=== PATIENT | female | born 1990 | race Caucasian/White ===

== ENCOUNTER 2017-01-18 09:28 | Outpatient (CLI) | payer OTHER ==
[2017-01-18 13:07] LABS: HCT - HEMATOCRIT 36.9 % (37.0-47.0); HGB - HEMOGLOBIN 12.6 g/dL (12.0-16.0); MEAN CORPUSCULAR HEMOGLOBIN 31.6 pg (27.0-31.0); MEAN CORPUSCULAR HGB CONC 34.2 g/dL (32.0-36.0); MEAN CORPUSCULAR VOLUME 92.5 fL (81.0-99.0); MEAN PLATELET VOLUME 8.3 fL (7.9-10.8); RED BLOOD COUNT 3.99 10^6/uL (4.20-5.40); RED CELL DISTRIBUTION WIDTH 12.4 % (12.0-15.0)
== END 2017-01-18 09:29 | disposition home or self-care (01) ==
LOC: LAB.N 09:28
PROVIDERS: ATTEND Obstetrics & Gynecology
DX: Z36 Encounter for antenatal screening of mother (principal)
CPT/HCPCS: 36415; 82950; 86850

== ENCOUNTER 2017-03-07 13:57 | Outpatient (CLI) | payer OTHER | END 2017-03-07 13:58 | disposition home or self-care (01) | LOC: LAB.R 13:57 | PROVIDERS: ATTEND Obstetrics & Gynecology | DX: Z36 Encounter for antenatal screening of mother (principal) | CPT/HCPCS: 87081 ==

== ENCOUNTER 2017-04-05 03:13 | Inpatient (IN) | payer OTHER ==
[2017-04-05] MEDS ORDERED: SODIUM CHLORIDE FLUSH 0.9% 10 ML SYRINGE IVP PRN (04:17)
[2017-04-05] MEDS ORDERED: OXYTOCIN/SODIUM CHLORIDE 250 ML IV ONE ×2 (04:17→19:11)
[2017-04-05] MEDS ORDERED: fentaNYL 100 MCG/2 ML VIAL IVP PRN (04:17)
[2017-04-05] MEDS ORDERED: ONDANSETRON 4 MG/2 ML VIAL IVP PRN (04:17)
[2017-04-05] MEDS ORDERED: miSOPROStol 200 MCG TABLET ONE (04:23)
[2017-04-05] MEDS ORDERED: MINERAL OIL LIGHT 10 ML MC ONE (04:23)
[2017-04-05] MEDS ORDERED: LIDOCAINE 1% 50 ML MDV ONE (04:23)
--- NOTE | 2017-04-05 04:31 | HISTORY & PHYSICAL EXAMINATION ---
Admit History - Instructions [place]ash: -Left hand click circles element as positive or present. -Right hand click slashes element as negative or not present. - Visit Reason Visit Reason: Membranes rupture - : 1 Parity: 0 Premature: 0 Ectopic: 0 : 0 Care: positive: [facility] (transfer of care @ 21 weeks' EGA), [facility] Risk/History: positive: None Complications This : positive: Other (excessive weight gain) Smoking Status: Never smoker - Mother's Labs Mother's Blood Type: positive: B Mother's RH: positive: Positive GBS: positive: Group B Step Negative Rubella Status: positive: Immune Meds/Allgy - Home Medications Home Medications: Ambulatory Orders Medication Instructions Recorded Confirmed Pnv95/Ferrous Fumarate/FA 1 each ORAL DAILY 04/05/17 04/05/17 [ Tablet] - Allergies Allergies/Adverse Reactions: Allergies Allergy/AdvReac Type Severity Reaction Status Date / Time No Known Drug Allergies Allergy Verified 04/05/17 04:16 Physical - Abdominal Exam Vital Signs: Temp Pulse Resp BP Pulse Ox 36.1 C L 93 18 109/95 H 99 04/05/17 03:30 04/05/17 03:34 04/05/17 03:34 04/05/17 03:34 04/05/17 03:30 Contraction Frequency (min/apart): 3-4 Contraction Intensity: positive: Mild Uterine Resting Tone: positive: Soft - Monitoring Heart Rate Baseline: 130 Strip Review: positive: Category I - Presentation Presentation: positive: Vertex - Vaginal Exam Membranes: positive: Membranes ruptured Dilation (in cm): 3 Effacement (%): 60 Station: positive: -1 (per RN) Cervical Position: positive: Midposition - Speculum Exam Speculum Exam Performed: positive: Yes (by RN) Findings: positive: Gross leak, Fern, Nitrazine, Other (significant pooling of CAF) - Other Notes Labor Progress Note/Additional Text: Angelia is a @ 39w6d by first trimester US who presents w/ complaint of SROM for CAF @ 0300. On admission, she is grossly ruptured for CAF. She is having mild contraction activity, denies LOF, and reports good FM. Her has been complicated solely by excessive weight gain (60+ pounds). She screened negative for GBS @ 36 weeks' gestation. She is likely interested in epidural anesthesia. She is accompanied by her , Richmond, and she is expecting a son, Bakari. Her physical exam is unremarkable: VSS, as noted. EFM: BL 130bpm, +accels, no decels, moderate variability TOCO: UCs q3-4 minutes, x60-70 seconds, palpably mild Eric's lie longitudinal, presentation cephalic, EFW 7.5-8# Gross rupture for CAF SVE per RN 2-3/60/-1, mid position, soft, Bishops': 9 AAOx3, NAD WA gravid female in good spirits, pleasant, normal mood & affect HEENT: grossly normocephalic EOMI Lungs: BL CTA t/o Heart RRR nls2s2, no murmur Abd: gravid, NT, palpably mild contractions, palpable movement, fetus TAMMY position Extremities: FROM t/o, +1 b/l pedal edema Skin: clean, dry, intact w/o lesion Neuro: no gross deficit A: 26 y/o @ 39w6d by first trimester US SROM for CAF x1.5 hours, afebrile GBS negative Not in active labor Adequate pain control w/o analgesia/anesthesia @ this time P: 1. Admit to FBP 2. Reviewed clinical scenario & options for management 3. Pt elects Pitocin augmentation, full PARQ 4. CBC/BB hold/AST/UA & P:C secondary to mildly elevated diastolic BP 5. Continuous electronic monitoring 6. Begin Pitocin infusion & titrate per protocol to adequate contraction pattern by tocometry 7. Reassess cervical status x4 hours, earlier PRN 8. Reviewed plan of care w/ pt, partner & RN @ bedside; back-up , Dr. Ford notified of pt status & POC; all in agreement, without concerns 9. Analgesia/anesthesia PRN per pt request
[2017-04-05] MEDS: LACTATED RINGERS 1,000 ML IV SCH ×3 (04:53→15:38)
[2017-04-05 04:57] LABS: BASOPHILS # (AUTO) 0.1 10^3/uL (0.0-0.1); BASOPHILS % (AUTO) 0.6 %; EOSINOPHILS # (AUTO) 0.1 10^3/uL (0.0-0.7); HCT - HEMATOCRIT 40.4 % (37.0-47.0); HGB - HEMOGLOBIN 14.2 g/dL (12.0-16.0); LYMPHOCYTES % (AUTO) 15.4 %; MEAN CORPUSCULAR HEMOGLOBIN 31.5 pg (27.0-31.0); MEAN CORPUSCULAR HGB CONC 35.1 g/dL (32.0-36.0); MEAN CORPUSCULAR VOLUME 89.8 fL (81.0-99.0); MEAN PLATELET VOLUME 8.6 fL (7.9-10.8); MONOCYTES # (AUTO) 0.7 10^3/uL (0.0-1.0); MONOCYTES % (AUTO) 5.5 %; NEUTROPHILS # (AUTO) 10.3 10^3/uL (1.5-6.6); NEUTROPHILS % (AUTO) 77.5 %; NUCLEATED RED BLOOD CELLS AUTO 0.1 /100WBC; RED CELL DISTRIBUTION WIDTH 12.6 % (12.0-15.0); UNCORRECTED WHITE BLOOD COUNT 13.2 x10^3/uL; WHITE BLOOD COUNT 13.2 x10^3/uL (4.8-10.8)
[2017-04-05] MEDS ORDERED: TERBUTALINE 1 MG/ML VIAL SUBQ SCH (05:00)
[2017-04-05] MEDS ORDERED: ACETAMINOPHEN 325 MG TABLET PO SCH (05:00)
[2017-04-05] MEDS ORDERED: OXYTOCIN/SODIUM CHLORIDE 250 ML IV SCH (05:00)
[2017-04-05 05:58] LABS: CREATININE 0.6 mg/dL (0.4-1.0)
[2017-04-05 06:00] LABS: BILIRUBIN,URINE NEGATIVE (NEGATIVE)
[2017-04-05] MEDS ORDERED: SODIUM CHLORIDE FLUSH 0.9% 10 ML SYRINGE IVP SCH (06:00)
[2017-04-05 06:08] LABS: UA w/ MICROSCOPIC CHARGE YES
[2017-04-05 06:09] LABS: UR CULTURE IF IND NOT INDICATED; WBC,URINE 0-3 /HPF (0-5)
--- NOTE | 2017-04-05 08:30 | PROVIDER PROGRESS NOTE ---
Labor Progress Note - Uterine Monitoring Uterine Monitoring Mode: positive: External toco Contraction Frequency (min/apart): 2-4 Contraction Intensity: positive: Mild Uterine Resting Tone: positive: Soft - Monitoring Monitor Mode: positive: External ultrasound Heart Rate Baseline: 135 Heart Rate Variability: positive: Moderate (6-25 bmp) Accelerations: positive: Present, 15x15 Decelerations: positive: None Strip Review: positive: Category I - Labor Progress Note Labor Progress Note/Additional Text: S: Angelia is doing well. She has eaten breakfast & is cheerfully conversant. Her , Richmond, is at the bedside & is supportive. She feels her contractions but does not yet describe them as painful or particularly uncomfortable. She does not desire analgesia/anesthesia. She has noticed some pink-tinged mucoid vaginal d/c when she has used the restroom. O: AAOx3, NAD WA gravid female. VS: T 97.9, HR 76, R 18, BP 105/55 EFM: BL 135bpm, + accels, no decels, moderate variability TOCO: UCs q2-4 min on 5mU/min of Pitocin SVE deferred secondary to no clinical indication Ongoing leakage of copious amounts of CAF A: 26 y/o @ 39w6d s/p SROM for CAF @ 0300, for a total ruptured duration of 5.5 hours, afebrile GBS negative Pitocin IOL w/ Pitocin infusion titrated over the course of 3 hours Not in labor Adequate pain control w/o analgesia/anesthesia FHTs cat I P: 1. Reviewed clinical scenario & process of induction, physiology of labor 2. Encouraged maternal position changes & reviewed optimal positioning to facilitate rotation & descent 3. Continue to titrate Pitocin per protocol to establish adequate contraction pattern by tocometry 4. SVE w/ clinically significant change 5. Analgesia/anesthesia PRN per pt request 6. Reviewed plan of care w/ pt & partner; Dr. Cook, back-up MD, aware of clinical scenario; all in agreement, without concerns.
--- NOTE | 2017-04-05 13:32 | PROVIDER PROGRESS NOTE ---
Labor Progress Note - Uterine Monitoring Contraction Frequency (min/apart): 2-3 Contraction Intensity: positive: Moderate to strong Uterine Resting Tone: positive: Soft - Monitoring Monitor Mode: positive: External ultrasound Heart Rate Baseline: 135 Heart Rate Variability: positive: Moderate (6-25 bmp) Accelerations: positive: Present, 15x15 Decelerations: positive: Variable (occasional to marnie in 110s w/ spontaneous return to baseline <60 seconds) Strip Review: positive: Category II - Vaginal Exam Dilation (in cm): 5 Effacement (%): 100 Station: -1 Cervical Position: Midposition - Labor Progress Note Labor Progress Note/Additional Text: S: Angelia is very uncomfortable w/ her uterine contractions. The tub was not particularly helpful. She is breathing w/ the contractions & crying. Her is present & supportive. She does not desire analgesia/anesthesia @ this time. She requests SVE O: AAOx3, uncomfortable gravid female VS: T97.9 HR 71 RR18 BP 124/80 EFM: BL 135bpm, + accels, mod saúl, occ saúl decel, non-repetitive, to marnie in 110s w/ spontaneous return to baseline <60 seconds TOCO UCs q2-3 minutes palpably strong x60-80 seconds on 8mU/min of Pitocin SVE: 5/90/-1, midposition, soft; ongoing leakage of CAF A: 26 y/o @ 39w6d s/p SROM @ 0300, for a total ruptured duration of 10.5 hours, afebrile CAF continuing to leak GBS negative FHTs cat II, reassuring & reactive Progressive cervical change; actively laboring Uncomfortable but coping P: 1. Reviewed pain management options 2. Reviewed optimal maternal positioning to facilitate rotation & descent 3. Reviewed physiology of labor, anticipatory guidance 4. Reassess cervical status w/ change in clinical status 5. Continue to titrate Pitocin per protocol to maintain adequate contraction pattern by tocometry 6. Anticipate 7. Reviewed plan of care w/ pt, partner, RN & Dr. Liliana MD back-up; all in agreement, without concerns.
[2017-04-05] MEDS ORDERED: fent/BUPIV 2 MCG/0.125% 250 ML EP ONE (14:46)
[2017-04-05] MEDS ORDERED: WITCH HAZEL/GLYCERIN 1 EACH MED..PAD TOP PRN (19:11)
[2017-04-05] MEDS ORDERED: HYDROCORTISONE/PRAMOXINE 10 GM PR PRN (19:11)
--- NOTE | 2017-04-05 19:20 | DELIVERY NOTE ---
Delivery Note - Labor Labor: positive: Induced by oxytocin - Infant Delivery Method Delivery Method: positive: Spontaneous vaginal delivery - Presentation Presentation: positive: Vertex, Compound (right hand), SHYAM - right occiput anterior - Nuchal Cord Nuchal Cord: positive: Present (x2, tight, delivered) - Anesthetic Anesthetic Type: - Amniotic Fluid Description Amniotic Fluid Description: positive: Clear - Episiotomy Type Episiotomy Type: positive: None - Laceration Laceration: positive: Labial (left labia minora avulsion), Vaginal (left sidewall) - Suture Suture Type: positive: Vicryl Suture Size: positive: 3-0, 4-0 - Delivery Outcome Delivery Outcome: positive: Livebirth - [place]: positive: Placed in direct skin contact with mother, Stimulated, Warmed , Roxana used sex: positive: Male - Cord Cord: positive: 3 vessels - Placenta Placenta: positive: Intact, Spontaneous - Estimated Blood Loss Estimated Blood Loss (in cc): 300 - Post Delivery Events Post Delivery Events: positive: No post delivery events - Delivery Comments (Free Text/Narrative) Delivery Comments (Free Text/Narrative): Angelia Huang is a 26 y/o [id number] who presented w/ complaint of gross SROM for CAF @ 0300 on 04/05/2017. She had an unremarkable course. She was admitted & induced w/ Pitocin infusion per her request. FHTs monitored electronically t/o, consistently reassuring cat I-II. She progressed over a period of 8 hours to 5cm dilatation & received an epidural for labor discomfort. Pitocin infusion was titrated per protocol & she progressed readily to complete dilatation @ 1815, for a total first stage duration of 6.25 hours. She pushed with direction to viable male over intact perineum in SHYAM position w/ compound R hand @ 1834, for a total 2nd stage duration of 19 minutes. Tight nuchal x2, somersaulted through following delivery of shoulders. Infant vigorous w/ spontaneous, lusty cry. Placed to maternal abdomen for drying/stim. Delayed cord clamping until cessation of pulsation, then cord clamped x2 by CNM, cut by mother. 3VC noted, cord blood obtained. Active management of the 3rd stage w/ Pitocin in IV fluids. Placenta delivered spontaneously, Joleen, @ 1839, for a total 3rd stage duration of 5 minutes. FF @ U-1. Vagina & perineum inspected & L vaginal sidewall/L labial avulsion noted. Repaired under epidural anesthesia w/ 3-0 & 4-0 vicryl. Hemostatic. Mother & baby stable, initiated w/in 30 minutes of delivery. 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
[2017-04-05] MEDS ORDERED: LACTATED RINGERS 1,000 ML IV SCH (20:00)
[2017-04-05] MEDS: IBUPROFEN 600 MG TABLET PO SCH (20:09)
[2017-04-05] MEDS: DOCUSATE SODIUM 100 MG CAPSULE PO SCH (20:09)
[2017-04-06] MEDS: IBUPROFEN 600 MG TABLET PO SCH ×3 (02:15→19:15)
[2017-04-06] MEDS: DOCUSATE SODIUM 100 MG CAPSULE PO SCH ×2 (09:13→22:22)
--- NOTE | 2017-04-06 09:30 | Discharge Plan ---
Discharge Plan Disposition: 01 Home, Self Care Condition: Good Prescriptions: Ibuprofen [Motrin] 600 mg PO Q6H #30 tablet Diet: Regular Activity Restrictions: pelvic rest Shower Restrictions: No Driving Restrictions: No Weight Bearing: Full Weight Instruction Topics: Vaginal After No Smoking: If you smoke, Please STOP! Call for help. Follow-up with: Usha Acevedo DO [Provider Admit Priv/Credential] -
--- NOTE | 2017-04-06 09:35 | DISCHARGE SUMMARY ---
Discharge Summary Admit Date: 04/05/17 Discharge Date: 04/06/17 Discharging Provider: Alfredo Code Status: Attempt Resuscitation Condition at Discharge: Good Discharge Disposition: 01 Home, Self Care - DIAGNOSES Admission Diagnoses: Leakage of amniotic fluid Term gestation Excessive weight gain in Discharge Diagnoses with Status of Each Condition: Vaginal & labial lacerations with repair - HPI History of Present Illness: Angelia is a 26 y/o [id number] who was admitted w/ SROM for CAF, not in labor. She elected Pitocin induction of labor & entered active labor within 8 hours of SROM. She progressed steadily & received epidural for anesthesia. She continued to progress w/ Pitocin infusion & was found to be complete 3.5 hours after receiving her epidural. She pushed w/ excellent expulsive effort to of viable male w/ tight nuchal cord x2 & compound R hand presentation over intact perineum. Apgars 9/9. She sustained L vaginal sidewall & L labial laceration, which were repaired under epidural anesthesia. - HOSPITAL COURSE Hospital Course: Angelia breastfed effectively w/in 30 minutes s/p delivery & had been w/o difficulty throughout her hospital stay. She had an observed 10/10 latch. , her pain was well-controlled w/o opioid analgesia. She was ambulating & voiding w/o difficulty. She had minimal lochia rubra. She was tolerating po & passing flatus. She was anticipating her 's deployment but reported additional excellent social support. She was planning 3 months of leave from work. Her physical exam was WNL, her vital signs were stable, and she had normal uterine involution. She was able to fully articulate pp warning s/sx, including pp depression s/sx, and after care instructions. She planned pp f/u w/ Dr. Usha Acevedo DO, and she planned support PRN w/ myself. She would be seen for evaluation x2 weeks, earlier PRN. She had emergency contact information & was ready to leave the hospital. - ALLERGIES Allergies/Adverse Reactions: Allergies Allergy/AdvReac Type Severity Reaction Status Date / Time No Known Drug Allergies Allergy Verified 04/05/17 04:16 - MEDICATIONS Home Medications: Ambulatory Orders Medication Instructions Recorded Confirmed Pnv95/Ferrous Fumarate/FA 1 each ORAL DAILY 04/05/17 04/05/17 [ Tablet] Ibuprofen [Motrin] 600 mg PO Q6H #30 tablet 04/06/17 - PHYSICAL EXAM AT DISCHARGE General Appearance: positive: No acute distress Eyes Bilateral: positive: Normal inspection, EOMI Respiratory: positive: No respiratory distress, Breath sounds nml Cardiovascular: positive: Regular rate & rhythm, No murmur Abdomen: positive: Non-tender, No distention, Other (Fundus firm @ U-1). negative: Mass Back: positive: Nml inspection Skin: positive: Color nml, No rash, Warm, Dry Extremities: positive: Non-tender, Full ROM. negative: Pedal edema, Calf tenderness, Will's sign/cords Neurologic/Psychiatric: positive: Oriented x3, CN's nml (2-12), Motor nml, Sensation nml, Mood/affect nml Physical Exam Other/Comments: Breast b/l soft, NT; nipples intact & everted. Perineum intact, labial sutures intact, minimal lochia rubra. - LABS Result Diagrams: 04/05/17 04:35 04/05/17 05:26 - FOLLOW UP Follow Up: x2 weeks for support, earlier PRN x6 weeks for pp care w/ Dr. Usha Acevedo DO - TIME SPENT Time Spent in Discharge (Minutes): 30
[2017-04-07] MEDS: IBUPROFEN 600 MG TABLET PO SCH ×3 (01:07→08:22)
[2017-04-07 03:11] VITALS: BP 122/77
[2017-04-07] MEDS: DOCUSATE SODIUM 100 MG CAPSULE PO SCH (08:22)
--- NOTE | 2017-04-07 12:22 | Labor Flowsheet ---
Labor Flowsheet Datetime Report Generated by CPN: 04/07/2017 12:22 Datetime: 04/07/2017 03:09 VITAL SIGNS NBP Sys/Ivy/Mean (mmHg): 122 : 77 : 88 Pulse: 79 COMMUNICATION LaborFlag: Labor Datetime: 04/05/2017 19:45 Temperature (F): 99.7 Temperature (C): 37.6 Temperature (C): 37.6 Datetime: 04/05/2017 19:30 SpO2 (%): 98 Datetime: 04/05/2017 18:25 STAGE 2 Pushing: Coached on Pushing; Urge to Push Pushing Position: Pushing with Contractions Pushing Progress: Descent with Pushing; with Pushing; Pushing Effectively with Contraction s Preparation for Delivery: Setup for Delivery Datetime: 04/05/2017 18:15 VAGINAL EXAM Dilatation (cm): 10.0 Effacement (%): 100 Station: 3 Exam by: P Wong, RN Datetime: 04/05/2017 17:00 Stage of : Labor UTERINE ACTIVITY Monitor Mode: External Frequency (min): 2-3 Quality: Strong Duration (sec): 60-70 Pattern: Normal: <= 5 Contractions in 10 Minutes Resting Tone (Palpate): Relaxed Pitocin Checklist: At Least 1 Acceleration of 15 bpm x 15 Seconds in 30 Minutes or Adequate Variabi lity; No More than 1 Late Deceleration Occurred in Past 30 Minutes; No More than 2 Variable Decelerat ions > 60 Seconds in Duration and decreasing >60 bpm in 30 minutes; No More than 5 Uterine Contractio ns in 10 Minutes for any 20 Minute Interval; Uterus Palpates Soft between Contractions ASSESSMENT A Monitor Mode: External US FHR Baseline Rate : 135 FHR Baseline Changes: No Baseline Change Variability: Moderate 6-25 bpm Accelerations: 15X15 Decelerations: Variable Oxygen Method: Room Air Patient Position/Activity: Semi-Fowlers Comfort Measures: Breathing/Relaxation; Coaching; Family Support Datetime: 04/05/2017 15:10 ANESTHESIA Anesthesia Plans: Epidural Anesthesia Interview: E Epidural Positioning: Side Lying Epidural Procedure Other: Pump Started; Redose Datetime: 04/05/2017 14:55 Epidural Procedure: Loading Dose; Completed Datetime: 04/05/2017 14:00 Hygiene: Underpad Changed; Peripad Changed; Gown Changed Datetime: 04/05/2017 12:58 Respirations: 18 Temperature Route: Oral Category: Category I Datetime: 04/05/2017 12:20 PATIENT CARE IV/Blood Work: New IV Bag Hung I/O Interventions: Ice Chips Given; Clear Liquids Given; Up to BR Datetime: 04/05/2017 09:00 MEDICATIONS Pitocin (milliunits): Increased to @
== END 2017-04-07 11:30 | disposition home or self-care (01) | DRG 775 ==
LOC: FBP 03:13 → WFO 03:13 → FBP 04:17
PROVIDERS: ADMIT Registered Nurse; ATTEND Registered Nurse
PROC: 10E0XZZ Delivery of Products of Conception, External Approach (ICD-10-PCS; principal; 2017-04-05)
PROC: 0UQGXZZ Repair Vagina, External Approach (ICD-10-PCS; 2017-04-05)
PROC: 0HQ9XZZ Repair Perineum Skin, External Approach (ICD-10-PCS; 2017-04-05)
DX: O42.02 Full-term premature rupture of membranes, onset of labor within 24 hours of rupture (principal); O69.1XX0 Labor and delivery complicated by cord around neck, with compression, not applicable or unspecified; O32.6XX0 Maternal care for compound presentation, not applicable or unspecified; O70.1 Second degree perineal laceration during delivery; O70.0 First degree perineal laceration during delivery; Z3A.39 39 weeks gestation of pregnancy; Z37.0 Single live birth
CPT/HCPCS: 36415; 51701; 81001; 81003; 82565; 82570; 84156; 84450; 85025; 87086; 99213

== ENCOUNTER 2019-05-22 19:06 | Outpatient (CLI) | payer OTHER ==
[2019-05-22 20:02] VITALS: BP 117/67
== END 2019-05-22 20:39 | disposition home or self-care (01) ==
LOC: WFO 19:06 → FBP 19:09 → WFO 20:39
PROVIDERS: ATTEND Obstetrics & Gynecology
DX: Z53.9 Procedure and treatment not carried out, unspecified reason (principal)
CPT/HCPCS: 99214

== ENCOUNTER 2021-03-09 08:22 | Emergency (ER) | payer OTHER ==
[2021-03-09 08:34] VITALS: BP 113/79
[2021-03-09] MEDS ORDERED: CHERRY SYRUP 10 ML UDC PO ONE (09:07)
[2021-03-09] MEDS ORDERED: ACETAMINOPHEN 325 MG TABLET PO STA (09:07)
[2021-03-09] MEDS ORDERED: DEXAMETHASONE 10 MG/ML VIAL PO STA (09:07)
--- NOTE | 2021-03-09 09:08 | ED Physician Documentation ---
PD HPI LOWER EXT INJURY - Stated complaint Stated Complaint: HIP PX - Chief complaint Chief Complaint: Ext Problem - History obtained from History obtained from: Patient - History of Present Illness PD HPI LOW EXT INJURY LOCATION: Right, Hip Type of injury: No: Fall, Twist Where injury occurred: Home Timing - onset: How many weeks ago (2-3) Timing - details: Gradual onset, Intermittant (she has had pain in right inguinal/hip area, worse with walking/twisting. Hurts more when has been on feet longer. Feels stiff in mornings. Had clicking and grinding sounds/feeling when first getting up. Mild pain left hip as well. No other joint pains now. Has some lumbar back pains at times.) Worsened by: Moving. No: Palpating Associated symptoms: No: Weakness, Numbness, Swelling Similar symptoms before: No diagnosis (has had similar pains at times in the past but would improve after a day or so.) Recently seen: Clinic (went to [facility] and had xray hip that pt was told was normal. Told to use Ibuprofen for tendonitis. Not improved with that and stretching.) Review of Systems Constitutional: denies: Fever, Chills GI: denies: Abdominal Pain, Nausea, Vomiting Skin: reports: Rash (occasional pebbly rash on face and behind ears. No elbow/knee rashes nor hyperkeratotic patches.). denies: Lesions Musculoskeletal: denies: Neck pain PD PAST MEDICAL HISTORY - Past Medical History Past Medical History: Yes Cardiovascular: None Respiratory: None Neuro: Headaches Endocrine/Autoimmune: None GI: None ECOTHERAPIST: None : None HEENT: None Psych: ADD/ADHD Musculoskeletal: Chronic back pain Derm: None - Past Surgical History Past Surgical History: Yes Ortho: Other /ECOTHERAPIST: section - Present Medications Home Medications: Ambulatory Orders Medication Instructions Recorded Confirmed Pnv No.95/Ferrous Fum/Folic AC 1 each ORAL DAILY 04/05/17 03/09/21 [ Tablet] Cholecalciferol [Vitamin D3] 25 mcg PO DAILY 03/09/21 03/09/21 Ibuprofen [Motrin] 600 mg PO Q6H PRN 03/09/21 03/09/21 Meloxicam [Mobic] 7.5 mg PO BID 10 Days #30 tablet 03/09/21 dexAMETHasone [Decadron] 4 mg PO DAILY #5 tablet 03/09/21 tiZANidine [Zanaflex] 4 mg PO BID PRN #20 tablet 03/09/21 - Allergies Allergies/Adverse Reactions: Allergies Allergy/AdvReac Type Severity Reaction Status Date / Time No Known Drug Allergies Allergy Verified 03/09/21 08:28 - Social History Does the pt smoke?: No Smoking Status: Never smoker Does the pt drink ETOH?: Yes Does the pt have substance abuse?: No - Family History Family history: reports: Other (mom with psoriatic arthritis. ) - Immunizations Immunizations are current?: Yes PD ED PE NORMAL - Vitals Vital signs reviewed: Yes - General General: Alert and oriented X 3, No acute distress, Well developed/nourished - Abdomen Abdomen: Soft, Non tender - Back Back: No CVA TTP, No spinal TTP - Derm Derm: Normal color, Warm and dry, No rash - Extremities Extremities: Other (right hip with some tenderness medially. No pain with flexion/ext but does hurt with external rotation actively. Slight clicking feeling with rotation. Passive ROM hurts with rotation as well. No pain with just impaction. ) - Neuro Neuro: Alert and oriented X 3, No motor deficit, No sensory deficit, Normal speech Results - Vitals Vitals: Vital Signs - 24 hr 03/09/21 08:30 Temperature 36.4 C L Heart Rate 74 Respiratory 16 Rate Blood Pressure 113/79 O2 Saturation 100 Oxygen O2 Source Room air - Labs Labs: Laboratory Tests 03/09/21 03/09/21 03/09/21 09:16 09:16 09:16 WBC 4.7 L RBC 4.78 Hgb 14.8 Hct 44.4 MCV 92.9 MCH 31.0 MCHC 33.3 RDW 11.7 L Plt Count 298 MPV 9.7 Neut # (Auto) 2.5 Lymph # (Auto) 1.6 [place] # (Auto) 0.3 Eos # (Auto) 0.2 Baso # (Auto) 0.1 Absolute Nucleated RBC 0.00 Nucleated RBC % 0.0 ESR 1 Sodium Potassium Chloride Carbon Dioxide Anion Gap BUN Creatinine Estimated GFR (MDRD) Glucose Calcium Rheumatoid Factor NEGATIVE 03/09/21 09:16 WBC RBC Hgb Hct MCV MCH MCHC RDW Plt Count MPV Neut # (Auto) Lymph # (Auto) [place] # (Auto) Eos # (Auto) Baso # (Auto) Absolute Nucleated RBC Nucleated RBC % ESR Sodium 139 Potassium 4.1 Chloride 103 Carbon Dioxide 28 Anion Gap 8.0 BUN 8 Creatinine 0.7 Estimated GFR (MDRD) 99 Glucose 95 Calcium 9.8 Rheumatoid Factor PD MEDICAL DECISION MAKING - ED course Complexity details: reviewed results, considered differential (symptoms sound suggestive of labral tear. She states she had xray in [facility] that was okay, so did not repeat xray here. Will refer to Ortho for eval and if they want advanced imaging. Also consider immune arthritis. Getting labs. ), d/w patient Departure - Departure Disposition: Home, Self Care Clinical Impression: Hip pain, acute Qualifiers: Laterality: right Qualified Code(s): M25.551 - Pain in right hip Labral tear of right hip joint Qualifiers: Encounter type: initial encounter Qualified Code(s): S73.191A - Other sprain of right hip, initial encounter Condition: Stable Record reviewed to determine appropriate education?: Yes Follow-Up: Matteo Parker MD [Provider Admit Priv/Credential] - Prescriptions: dexAMETHasone [Decadron] 4 mg PO DAILY #5 tablet Meloxicam [Mobic] 7.5 mg PO BID 10 Days #30 tablet tiZANidine [Zanaflex] 4 mg PO BID PRN #20 tablet PRN Reason: Spasms Comments: Light activity including some easy running is fine. Stretching is good. If you find particular motions more painful, then just limit those motions. I would avoid impact such as jumping or heavy weights. For now let us try some regular anti-inflammatories. Initially Decadron steroid anti-inflammatory daily for 5 more days. After that change to meloxicam nonsteroidal anti-inflammatory twice daily for the next couple of weeks. Add Tylenol every 4 hours if needed for pain. If you are feeling stiffness in through the muscles, you could add tizanidine muscle relaxant. This may be most useful at nighttime before bed to see if there is less stiffness or creakiness in the mornings. We did do some blood tests today to look for autoimmune type disorders. Otherwise to evaluate localized hip process, I would suggest following up with orthopedics. I gave you our local orthopedic number. They can better evaluate on exam and may wants specialized imaging such as MRI to look for joint tissues such as labral tears etc. The above medications would be useful treatment for even these and would certainly be very good treatments for tendinitis and simple arthritis. Discharge Date/Time: 03/09/21 09:42
[2021-03-09 09:22] LABS: BASOPHILS # (AUTO) 0.1 10^3/uL (0.0-0.1); BASOPHILS % (AUTO) 1.7 %; EOSINOPHILS # (AUTO) 0.2 10^3/uL (0.0-0.7); EOSINOPHILS % (AUTO) 3.4 %; HCT - HEMATOCRIT 44.4 % (37.0-47.0); HGB - HEMOGLOBIN 14.8 g/dL (12.0-16.0); LYMPHOCYTES # (AUTO) 1.6 10^3/uL (1.5-3.5); LYMPHOCYTES % (AUTO) 34.5 %; MEAN CORPUSCULAR HGB CONC 33.3 g/dL (32.0-36.0); MEAN CORPUSCULAR VOLUME 92.9 fL (81.0-99.0); MEAN PLATELET VOLUME 9.7 fL (7.9-10.8); MONOCYTES # (AUTO) 0.3 10^3/uL (0.0-1.0); MONOCYTES % (AUTO) 5.8 %; NEUTROPHILS # (AUTO) 2.5 10^3/uL (1.5-6.6); NEUTROPHILS % (AUTO) 54.6 %; PLT - PLATELET COUNT 298 10^3/uL (130-450); RED BLOOD COUNT 4.78 10^6/uL (4.20-5.40); RED CELL DISTRIBUTION WIDTH 11.7 % (12.0-15.0); WHITE BLOOD COUNT 4.7 x10^3/uL (4.8-10.8)
[2021-03-09 09:33] LABS: CALCIUM 9.8 mg/dL (8.5-10.3); CREATININE 0.7 mg/dL (0.4-1.0); POTASSIUM 4.1 mmol/L (3.5-5.0)
[2021-03-09 09:57] LABS: RHEUMATOID FACTOR NEGATIVE (Negative)
[2021-03-11 23:52] LABS: ANA PATTERN Nuclear, Speckled; ANA SCREEN POSITIVE (NEGATIVE); ANA TITER 1:40 titer
== END 2021-03-09 09:42 | disposition home or self-care (01) ==
LOC: ED 08:22
DX: S73.191A Other sprain of right hip, initial encounter (principal); X58.XXXA Exposure to other specified factors, initial encounter
CPT/HCPCS: 36415; 80048; 85025; 85651; 86038; 86430; 99283; 99284; A9270

== ENCOUNTER 2021-03-30 09:22 | Outpatient (CLI) | payer OTHER ==
--- NOTE | 2021-03-30 16:51 | MRI Report ---
PROCEDURE: Pelvis W/O INDICATIONS: BILATERAL HIP PAIN TECHNIQUE: Noncontrast coronal T1 spin echo and STIR through the bony pelvis. Sagittal T2 FSE with fat saturati on, oblique axial PD FSE and T2 FSE with fat saturation through the symphysis pubis. COMPARISON: None. FINDINGS: Image quality: Excellent. Tendons and muscles: The attachments of the rectus abdominis and adductor longus muscles anterior to the pubic bodies appear intact bilaterally. The intervening common aponeurosis demonstrates normal morphology and signal. More inferiorly, the adductor longus musculotendinous junctions appear normal , without tendinopathy or tears. More inferior images demonstrate no fascial herniations of the addu ctor longus muscle fibers. Bony structures: No focal bone marrow edema around the symphysis pubis. No productive or erosive [place] changes to suggest osteitis pubis. No stress fractures. No suspicious marrow space occupying les ions. There is decreased marrow fat signal intensity seen diffusely, raising possibility of marrow re conversion. However recommend correlation with clinical and laboratory data. Other tendons: The gluteus medius and minimus tendons appear intact although there is mild thickenin g and adjacent soft tissue edema in keeping with mild insertional tendinopathy bilaterally. No associated muscle atrophy. The iliopsoas tendon appears intact, without adjacent bursal fluid col lections. The origin of the hamstring tendons are intact at the ischial tuberosities. Hip joints: Larger field of view images demonstrate no avascular necrosis of the femoral heads. Subc entimeter T2 hyperintensity seen in the region of the superior labrum on both sides could be fluid wi thin perilabral sulcus, versus small paralabral cysts in the setting of labral tear. This could be be tter assessed with dedicated MR arthrography as clinically necessary. Soft tissues: Immediately lateral to the rectus abdominis tendon fibers, the superficial rings of th e inguinal canals demonstrate no hernias. The proximal sciatic neurovascular bundles appear normal a djacent to the hamstring tendons. No free pelvic fluid. Bladder wall thickness is normal. Genitour inary structures and bowel loops appear normal where visualized. IMPRESSION: Bilateral hip abductor insertional tendinopathy with adjacent edema. T2 hyperintense foci in the region of the superior acetabular labrum bilaterally, as detailed above. If clinically warranted, further evaluation with MR arthrography could be considered. Reviewed by: Norris Sánchez MD on 03/30/2021 4:49 PM PDT Approved by: Norris Sánchez MD on 03/30/2021 4:49 PM PDT Station ID: [id number]
== END 2021-03-30 09:23 | disposition home or self-care (01) ==
LOC: DI 09:22
DX: M67.952 Unspecified disorder of synovium and tendon, left thigh (principal); M67.951 Unspecified disorder of synovium and tendon, right thigh

== ENCOUNTER 2022-03-14 21:41 | Emergency (ER) | payer OTHER ==
[2022-03-14] MEDS ORDERED: FAMOTIDINE 20 MG TABLET PO STA (23:37)
[2022-03-14] MEDS ORDERED: predniSONE 20 MG TABLET PO STA (23:37)
--- NOTE | 2022-03-14 23:48 | ED Physician Documentation ---
History of Present Illness - Stated complaint Stated Complaint: BLEEDING FROM INCISION - Chief complaint Chief Complaint: Abd Pain - History obtained from History obtained from: Patient - Additonal information Additional information: The patient comes to the emergency department chief complaint of noticing drainage inside her 3-day-old incision site. The patient denies any pain but has noticed spreading redness from the area that is intensely itchy. She is also noticed some small blisters. The patient denies any fevers or chills. No streaking. She otherwise is feeling well. No other complaints at this time. No trauma to her wound. Review of Systems Ten Systems: 10 systems reviewed and negative Constitutional: reports: Reviewed and negative Eyes: reports: Reviewed and negative Ears: reports: Reviewed and negative Nose: reports: Reviewed and negative Throat: reports: Reviewed and negative Cardiac: reports: Reviewed and negative Respiratory: reports: Reviewed and negative GI: reports: Reviewed and negative : reports: Reviewed and negative Skin: reports: Reviewed and negative Musculoskeletal: reports: Reviewed and negative Neurologic: reports: Reviewed and negative Psychiatric: reports: Reviewed and negative Endocrine: reports: Reviewed and negative Immunocompromised: reports: Reviewed and negative PD PAST MEDICAL HISTORY - Past Medical History Past Medical History: Yes Cardiovascular: None Respiratory: None Neuro: Headaches Endocrine/Autoimmune: None GI: None CASE MAKER: None : None HEENT: None Psych: ADD/ADHD Musculoskeletal: Chronic back pain Derm: None - Past Surgical History Past Surgical History: Yes Ortho: Other /CASE MAKER: section - Present Medications Home Medications: Ambulatory Orders Medication Instructions Recorded Confirmed Pnv No.95/Ferrous Fum/Folic AC 1 each ORAL DAILY 04/05/17 03/09/21 [ Tablet] Cholecalciferol [Vitamin D3] 25 mcg PO DAILY 03/09/21 03/09/21 Ibuprofen [Motrin] 600 mg PO Q6H PRN 03/09/21 03/09/21 Meloxicam [Mobic] 7.5 mg PO BID 10 Days #30 tablet 03/09/21 dexAMETHasone [Decadron] 4 mg PO DAILY #5 tablet 03/09/21 tiZANidine [Zanaflex] 4 mg PO BID PRN #20 tablet 03/09/21 predniSONE [Deltasone] 60 mg PO DAILY 5 Days #15 tablet 03/14/22 Famotidine [Pepcid] 20 mg PO BID #60 tablet 03/15/22 - Allergies Allergies/Adverse Reactions: Allergies Allergy/AdvReac Type Severity Reaction Status Date / Time adhesive Allergy Rash Verified 03/14/22 23:48 - Social History Does the pt smoke?: No Smoking Status: Never smoker Does the pt drink ETOH?: Yes Does the pt have substance abuse?: No - Immunizations Immunizations are current?: Yes PD ED PE NORMAL - Vitals Vital signs reviewed: Yes - General General: Alert and oriented X 3, No acute distress - HEENT HEENT: Atraumatic, PERRL - Neck Neck: Supple, no meningeal sign - Respiratory Respiratory: No respiratory distress - Abdomen Abdomen: Soft, Non tender, Non distended, Other (Intact and healthy appearing C- section incision site with what appears to be coalesced urticaria spreading away from the site.) - Derm Derm: Warm and dry - Extremities Extremities: No deformity - Neuro Neuro: Alert and oriented X 3 - Psych Psych: Normal mood, Normal affect Results - Vitals Vitals: Oxygen O2 Source Room air PD MEDICAL DECISION MAKING - ED course Complexity details: considered differential, d/w patient ED course: I discussed with the patient that her wound is not bleeding but rather, appears to have an allergic reaction and progress, most likely to the adhesive of the bandage. Patient is breast-feeding and so I have started her only on Pepcid and prednisone. Patient may apply topical Benadryl or hydrocortisone if she wishes. Departure - Departure Disposition: 01 Home, Self Care Clinical Impression: Allergic reaction Qualifiers: Encounter type: initial encounter Qualified Code(s): T78.40XA - Allergy, unspecified, initial encounter Condition: Stable Instructions: ED Dermatitis Contact Prescriptions: predniSONE [Deltasone] 60 mg PO DAILY 5 Days #15 tablet Famotidine [Pepcid] 20 mg PO BID #60 tablet Comments: Your prescriptions have been electronically transmitted to [facility] in [place]. Benadryl is not safe to take orally when breast feeding, so please use this topically only. Discharge Date/Time: 03/15/22 00:07
[2022-03-15 00:08] VITALS: BP 120/72
== END 2022-03-15 00:07 | disposition home or self-care (01) ==
LOC: ED 21:41
DX: T78.40XA Allergy, unspecified, initial encounter (principal)
CPT/HCPCS: 99282; 99284; A9270; J7512